=== PATIENT | female | born 1990 | race American Indian/Alaskan Native ===

== ENCOUNTER 2019-08-08 13:20 | Inpatient (IN) | payer OTHER ==
[~2019-08-08] VITALS: Ht 162.6 cm; Wt 77.0 kg
[~2019-08-08 13:20] MED LIST: BACTRIM DS TAB1 EACH PO; NAPROXEN500 MG PO
--- NOTE | 2019-08-09 08:13 | PR ---
[facility] [address] [facility] [place] [address] Signed PP Progress Notes Datetime Report Generated by CPN: 08/09/2019 08:13 SUBJECTIVE: [id number] Pain: Within normal limits Vital Signs: [id number] Vital Signs: Reviewed; Within Normal Limits EXAM: [id number] Cardiovascular: Not Done Respiratory: Not Done Abdomen/Uterus: Abnormal Lochia: Normal Vulva/Perineum: Not Done Breasts: Not Done CVA Tenderness: Not Done Extremities: Normal Incision: Not Applicable Progress: Normal Exam Comments: Fundus firm, NT @ U-1 H/H 10.5/32.4, WBC 12.6, plat 237k IMPRESSION/PLAN/PROCEDURES: [id number] Impression: Normal progression Plan: Continue present management Progress Notes: Doing well overall. Signing Physician: Suzie Crowell MD Copies: ~ *Electronically Signed* 08/09/19812 SUZIE CROWELL MD PATIENT NAME: JOCELYNE WATT PROGRESS NOTE DATE OF : 89 PHYSICIAN: SUZIE CROWELL MD RPT #: [id number] REPORT IS CONFIDENTIAL AND NOT TO BE RELEASED WITHOUT AUTHORIZATION
--- NOTE | 2019-08-09 08:14 | PR ---
[facility] [address] [facility] [place] [address] Signed PP Progress Notes Datetime Report Generated by CPRicky: 08/09/2019 08:14 SUBJECTIVE: [id number] Pain: Within normal limits Vital Signs: [id number] Vital Signs: Reviewed; Within Normal Limits EXAM: [id number] Cardiovascular: Not Done Respiratory: Not Done Abdomen/Uterus: Abnormal Lochia: Normal Vulva/Perineum: Not Done Breasts: Not Done CVA Tenderness: Not Done Extremities: Normal Incision: Not Applicable Progress: Normal Exam Comments: Fundus firm, NT @ U-1 H/H 10.5/32.4, WBC 12.6, plat 237k IMPRESSION/PLAN/PROCEDURES: [id number] Impression: Normal progression Plan: Continue present management Progress Notes: Doing well overall. Signing Physician: Suzie Crowell MD Copies: ~ *Electronically Signed* 08/09/19813 SUZIE CROWELL MD PATIENT NAME: JOCELYNE WATT PROGRESS NOTE DATE OF : 89 PHYSICIAN: SUZIE CROWELL MD RPT #: [id number] REPORT IS CONFIDENTIAL AND NOT TO BE RELEASED WITHOUT AUTHORIZATION
--- NOTE | 2019-08-10 08:32 | PR ---
[facility] [address] [facility] [place] [address] Signed PP Progress Notes Datetime Report Generated by CPN: 08/10/2019 08:32 SUBJECTIVE: [id number] Pain: Within normal limits Vital Signs: [id number] Vital Signs: Reviewed; Within Normal Limits EXAM: [id number] Cardiovascular: Not Done Respiratory: Not Done Abdomen/Uterus: Abnormal Lochia: Normal Vulva/Perineum: Not Done Breasts: Not Done CVA Tenderness: Not Done Extremities: Normal Incision: Not Applicable Progress: Normal Exam Comments: Fundus firm, NT @ U-2 IMPRESSION/PLAN/PROCEDURES: [id number] Impression: Normal progression Plan: Discharge Procedures: Rhogam Progress Notes: Doing well. She is ready for D/C. Signing Physician: Suzie Crowell MD Copies: ~ *Electronically Signed* 08/10/19831 SUZIE CROWELL MD PATIENT NAME: JOCELYNE WATT PROGRESS NOTE DATE OF : 89 PHYSICIAN: SUZIE CROWELL MD RPT #: [id number] REPORT IS CONFIDENTIAL AND NOT TO BE RELEASED WITHOUT AUTHORIZATION
== END 2019-08-10 16:05 | disposition home or self-care (01) | DRG 806 ==
LOC: FBCO 13:20 → EDBD 13:41 → FBC 13:41
PROVIDERS: ADMIT Obstetrics & Gynecology
PROC: 10E0XZZ Delivery of Products of Conception, External Approach (ICD-10-PCS; principal; 2019-08-08)
PROC: 0KQM0ZZ Repair Perineum Muscle, Open Approach (ICD-10-PCS; 2019-08-08)
PROC: 3E0234Z Introduction of Serum, Toxoid and Vaccine into Muscle, Percutaneous Approach (ICD-10-PCS; 2019-08-09)
DX: O69.81X0 Labor and delivery complicated by cord around neck, without compression, not applicable or unspecified (principal); O99.324 Drug use complicating childbirth; Z37.0 Single live birth; Z3A.39 39 weeks gestation of pregnancy; O76 Abnormality in fetal heart rate and rhythm complicating labor and delivery; O62.2 Other uterine inertia; O70.1 Second degree perineal laceration during delivery; O26.893 Other specified pregnancy related conditions, third trimester; Z67.41 Type O blood, Rh negative; O99.52 Diseases of the respiratory system complicating childbirth; J30.2 Other seasonal allergic rhinitis; F12.90 Cannabis use, unspecified, uncomplicated
CPT/HCPCS: 36415; 83030; 85027; 86850; 86900; 86901; J2210; J2590; J2790

== ENCOUNTER 2020-04-03 15:47 | Emergency (ER) | payer OTHER ==
[~2020-04-03] VITALS: Ht 162.6 cm; Wt 67.1 kg
[2020-04-03] MEDS ORDERED: SERTRALINE HCL100 MG PO (15:59)
[2020-04-03] MEDS ORDERED: NORCO 5-325 TA1 EACH PO (17:08)
[2020-04-03] MEDS ORDERED: KEFLEX500 MG PO (17:08)
== END 2020-04-03 17:49 | disposition home or self-care (01) ==
LOC: ED 15:47
DX: S67.193A Crushing injury of left middle finger, initial encounter (principal); S61.313A Laceration without foreign body of left middle finger with damage to nail, initial encounter; Z87.891 Personal history of nicotine dependence; X58.XXXA Exposure to other specified factors, initial encounter
CPT/HCPCS: 11760; 73140; 99283-25; A9270

== ENCOUNTER 2021-11-18 10:14 | Emergency (ER) | payer OTHER ==
[~2021-11-18] VITALS: Ht 162.6 cm; Wt 67.1 kg
[~2021-11-18 10:14] MED LIST changes: +KEFLEX500 MG PO; +NORCO 5-325 TA1 EACH PO; +SERTRALINE HCL100 MG PO
== END 2021-11-18 12:23 | disposition home or self-care (01) ==
LOC: ED 10:14
DX: J02.9 Acute pharyngitis, unspecified (principal); Z20.822 Contact with and (suspected) exposure to COVID-19
CPT/HCPCS: 99283; C9803